=== PATIENT | female | born 1975 | race Asian ===

== ENCOUNTER 2018-04-09 08:56 | Inpatient (IN) | payer OTHER ==
[2018-04-09] MEDS: BUPIVACAINE 0.25% (MPF) 30 ML INJ
[~2018-04-09 08:56] MED LIST: EPHEDrine SULFATE 50 MG/5 ML SYG
[2018-04-09 11:23] LABS: ADD MAN DIFF? NO
[2018-04-09 11:24] LABS: WHITE BLOOD COUNT 9.4 10^3/ul (4.8-10.8)
[2018-04-09 11:24] LABS: BASOPHIL # 0.1 10^3/ul (0.0-0.1); BASOPHILS % 0.6 % (0.0-2.0); EOSINOPHILS # 0.1 10^3/ul (0.0-0.5); EOSINOPHILS % 0.5 % (0.0-7.0); HEMOGLOBIN 13.2 g/dl (12.0-16.0); LYMPHOCYTES # 2.1 10^3/ul (0.8-2.9); LYMPHOCYTES % 22.7 % (15.0-51.0); MEAN CORPUSCULAR HEMOGLOBIN 30.8 pg (29.0-33.0); MEAN CORPUSCULAR HGB CONC 33.8 g/dl (32.0-37.0); MEAN CORPUSCULAR VOLUME 91.1 fl (82.0-101.0); MEAN PLATELET VOLUME 9.1 fl (7.4-10.4); MONOCYTE # 0.5 10^3/ul (0.3-0.9); MONOCYTES % 5.3 % (0.0-11.0); NEUTROPHIL # 6.6 10^3/ul (1.6-7.5); NEUTROPHILS % 70.7 % (39.0-77.0); PLATELET COUNT 372 10^3/UL (140-415); RED BLOOD COUNT 4.28 10^6/ul (4.20-5.40); RED CELL DISTRIBUTION WIDTH 12.2 % (11.5-14.5)
[2018-04-09 11:45] LABS: ALANINE AMINOTRANSFERASE 20 IU/L (13-69); ALBUMIN 4.2 g/dl (3.3-4.9); ALBUMIN/GLOBULIN RATIO 1.31; ALKALINE PHOSPHATASE 70 IU/L (42-121); ANION GAP 13 (8-16); ASPARTATE AMINO TRANSFERASE 19 IU/L (15-46); BILIRUBIN,INDIRECT 0.4 mg/dl (0-1.1); BILIRUBIN,TOTAL 0.4 mg/dl (0.2-1.3); CARBON DIOXIDE 26 mmol/L (21-31); CHLORIDE 111 mmol/L (97-110); GLUCOSE 92 mg/dl (70-220); TOTAL PROTEIN 7.4 g/dl (6.1-8.1)
[2018-04-09 11:46] LABS: BLOOD UREA NITROGEN 7 mg/dl (7-20); CALCIUM 9.5 mg/dl (8.4-10.2); CREATININE 0.65 mg/dl (0.44-1.00); POTASSIUM 3.5 mmol/L (3.5-5.1); SODIUM 146 mmol/L (135-144)
[2018-04-09 11:50] LABS: INR 0.99; PROTIME 13.2 Sec (11.9-14.9)
[2018-04-09 11:51] LABS: PARTIAL THROMBOPLASTIN TIME 32.4 Sec (25.0-35.0)
[2018-04-09] MEDS: SOD CHLORIDE 0.9% 1,000 ML IV ×4 (12:00→23:50)
[2018-04-09] MEDS ORDERED: ISOSULFAN BLUE 1% 5 ML INJ SC (12:11)
[2018-04-09] MEDS ORDERED: ONDANSETRON 4 MG INJ (13:08)
[2018-04-09] MEDS ORDERED: FENTAnyl 50 MCG/ML VIAL (13:08)
[2018-04-09] MEDS ORDERED: CEFAZOLIN 1 GM INJ (13:08)
[2018-04-09] MEDS ORDERED: MIDAZOLAM 1 MG/ML 2 ML INJ (13:08)
[2018-04-09] MEDS ORDERED: PROPOFOL 20 ML (13:08)
[2018-04-09] MEDS ORDERED: ACETAMINOPHEN 1000MG/100ML IV 100 ML (13:08)
[2018-04-09] MEDS ORDERED: ROCURONIUM 50 MG INJ (13:08)
[2018-04-09] MEDS ORDERED: SUGAMMADEX SODIUM 200 MG/2 ML VIAL IV (13:09)
[2018-04-09] MEDS ORDERED: METOCLOPRAMIDE 10 MG INJ (13:09)
[2018-04-09] MEDS ORDERED: KETOROLAC 30 MG INJ (13:09)
[2018-04-09] MEDS ORDERED: DEXAMETHASONE 4 MG/ML 1 ML INJ (13:09)
[2018-04-09] MEDS ORDERED: METOCLOPRAMIDE 10 MG INJ IV (13:30)
[2018-04-09] MEDS ORDERED: MEPERIDINE 25 MG INJ IV (13:30)
[2018-04-09] MEDS ORDERED: ONDANSETRON 4 MG INJ IV (13:30)
[2018-04-09] MEDS ORDERED: LABETALOL HCL 20MG INJ IV (13:30)
[2018-04-09] MEDS ORDERED: DIPHENHYDRAMINE 50 MG INJ IV (13:30)
[2018-04-09] MEDS ORDERED: OXYCODONE/ACETAMINOPHEN (5/325) TAB PO ×2 (13:30)
[2018-04-09] MEDS ORDERED: EPHEDrine SULFATE 50 MG/5 ML SYG IV (13:30)
[2018-04-09] MEDS ORDERED: HYDROmorphONE (0.2 MG/ML) 10ML SYG IV (13:30)
[2018-04-09] MEDS ORDERED: FENTAnyl 50 MCG/ML VIAL IV ×3 (13:30)
[2018-04-09] MEDS: CEFAZOLIN 2 GM/50 ML (PMX) 50 ML IVPB ×3 (14:00→21:29)
[2018-04-09] MEDS ORDERED: KETOROLAC 30 MG INJ IV (14:00)
[2018-04-09] MEDS ORDERED: morphine 2 MG INJ IV (14:00)
[2018-04-09] MEDS: HYDROmorphONE (0.2 MG/ML) 10ML SYG IV ×3 (14:05→14:21)
[2018-04-09 15:36] LABS: ADD MAN DIFF? NO
[2018-04-09 15:38] LABS: BASOPHILS % 0.4 % (0.0-2.0); EOSINOPHILS % 0.4 % (0.0-7.0); HEMATOCRIT 36.8 % (37.0-47.0); HEMOGLOBIN 12.5 g/dl (12.0-16.0); LYMPHOCYTES # 1.3 10^3/ul (0.8-2.9); MEAN CORPUSCULAR HEMOGLOBIN 30.9 pg (29.0-33.0); MEAN CORPUSCULAR VOLUME 91.1 fl (82.0-101.0); MONOCYTE # 0.2 10^3/ul (0.3-0.9); MONOCYTES % 1.7 % (0.0-11.0); NEUTROPHIL # 9.4 10^3/ul (1.6-7.5); NEUTROPHILS % 85.1 % (39.0-77.0); PLATELET COUNT 347 10^3/UL (140-415); RED BLOOD COUNT 4.04 10^6/ul (4.20-5.40); RED CELL DISTRIBUTION WIDTH 12.3 % (11.5-14.5)
[2018-04-09 16:04] LABS: ALANINE AMINOTRANSFERASE 15 IU/L (13-69); ALBUMIN/GLOBULIN RATIO 1.29; ALKALINE PHOSPHATASE 70 IU/L (42-121); ANION GAP 16 (8-16); ASPARTATE AMINO TRANSFERASE 17 IU/L (15-46); BILIRUBIN,INDIRECT 0.3 mg/dl (0-1.1); BILIRUBIN,TOTAL 0.3 mg/dl (0.2-1.3); BLOOD UREA NITROGEN 7 mg/dl (7-20); CALCIUM 8.5 mg/dl (8.4-10.2); CARBON DIOXIDE 22 mmol/L (21-31); CHLORIDE 110 mmol/L (97-110); CREATININE 0.65 mg/dl (0.44-1.00); GLUCOSE 119 mg/dl (70-220); POTASSIUM 3.5 mmol/L (3.5-5.1); SODIUM 144 mmol/L (135-144); TOTAL PROTEIN 7.1 g/dl (6.1-8.1)
[2018-04-09] MEDS: HYDROCODONE/APAP (5/325) TAB PO (19:42)
[2018-04-10] MEDS: SOD CHLORIDE 0.9% 1,000 ML IV (01:15)
[2018-04-10] MEDS: CEFAZOLIN 2 GM/50 ML (PMX) 50 ML IVPB (06:03)
[2018-04-10] MEDS: HYDROCODONE/APAP (5/325) TAB PO ×2 (06:03→15:39)
[2018-04-10 06:24] LABS: ADD MAN DIFF? NO
[2018-04-10 06:34] LABS: WHITE BLOOD COUNT 12.3 10^3/ul (4.8-10.8)
[2018-04-10 06:34] LABS: BASOPHILS % 0.2 % (0.0-2.0); EOSINOPHILS % 0.3 % (0.0-7.0); HEMATOCRIT 32.2 % (37.0-47.0); HEMOGLOBIN 10.6 g/dl (12.0-16.0); LYMPHOCYTES # 2.4 10^3/ul (0.8-2.9); LYMPHOCYTES % 19.6 % (15.0-51.0); MEAN CORPUSCULAR HEMOGLOBIN 30.8 pg (29.0-33.0); MEAN CORPUSCULAR HGB CONC 32.9 g/dl (32.0-37.0); MEAN CORPUSCULAR VOLUME 93.6 fl (82.0-101.0); MEAN PLATELET VOLUME 9.3 fl (7.4-10.4); MONOCYTE # 0.9 10^3/ul (0.3-0.9); MONOCYTES % 7.4 % (0.0-11.0); NEUTROPHIL # 8.8 10^3/ul (1.6-7.5); NEUTROPHILS % 72.1 % (39.0-77.0); PLATELET COUNT 298 10^3/UL (140-415); RED BLOOD COUNT 3.44 10^6/ul (4.20-5.40); RED CELL DISTRIBUTION WIDTH 12.5 % (11.5-14.5)
[2018-04-10 06:55] LABS: ALANINE AMINOTRANSFERASE 18 IU/L (13-69); ALBUMIN 2.9 g/dl (3.3-4.9); ALBUMIN/GLOBULIN RATIO 1.11; ALKALINE PHOSPHATASE 49 IU/L (42-121); ANION GAP 9 (8-16); ASPARTATE AMINO TRANSFERASE 15 IU/L (15-46); BILIRUBIN,INDIRECT 0.2 mg/dl (0-1.1); BILIRUBIN,TOTAL 0.2 mg/dl (0.2-1.3); BLOOD UREA NITROGEN 8 mg/dl (7-20); CARBON DIOXIDE 26 mmol/L (21-31); CHLORIDE 114 mmol/L (97-110); CREATININE 0.64 mg/dl (0.44-1.00); GLUCOSE 96 mg/dl (70-220); POTASSIUM 4.1 mmol/L (3.5-5.1); SODIUM 145 mmol/L (135-144); TOTAL PROTEIN 5.5 g/dl (6.1-8.1)
== END 2018-04-10 18:35 | disposition home or self-care (01) | DRG 577 ==
LOC: SDS 08:56 → REC 13:52 → MS2 15:05
PROC: 0HTT0ZZ Resection of Right Breast, Open Approach (ICD-10-PCS; principal; 2018-04-09 12:18)
PROC: 0HX5XZZ Transfer Chest Skin, External Approach (ICD-10-PCS; 2018-04-09 12:18)
PROC: 07B50ZZ Excision of Right Axillary Lymphatic, Open Approach (ICD-10-PCS; 2018-04-09 12:18)
PROC: 0KBF0ZX Excision of Right Trunk Muscle, Open Approach, Diagnostic (ICD-10-PCS; 2018-04-09 12:18)
DX: C50.911 Malignant neoplasm of unspecified site of right female breast (principal); C77.3 Secondary and unspecified malignant neoplasm of axilla and upper limb lymph nodes; E87.0 Hyperosmolality and hypernatremia; D72.829 Elevated white blood cell count, unspecified
CPT/HCPCS: 80053; 84703; 85025; 85610; 85730; 88307; 99217